=== PATIENT | female | born 1935 | race Caucasian/White ===

== ENCOUNTER 2021-07-25 09:35 | Day surgery (SDC) | payer MEDICARE ==
[2021-07-18 12:08] LABS: BASOPHILS # (AUTO) 0.1 X10'3 (0-0.2); BASOPHILS % (AUTO) 0.9 % (0-1); EOSINOPHILS # (AUTO) 0.1 X10'3 (0-0.9); EOSINOPHILS % (AUTO) 2.5 % (0-6); LYMPHOCYTES # (AUTO) 1.5 X10'3 (1.1-4.8); MEAN CORPUSCULAR HEMOGLOBIN 30.1 PG (27.0-31.0); MEAN CORPUSCULAR HGB CONC 32.8 g/dL (33.0-36.5); MEAN CORPUSCULAR VOLUME 91.6 FL (78-98); MEAN PLATELET VOLUME 8.1 FL (7.4-10.4); MONOCYTES # (AUTO) 0.6 X10'3 (0-0.9); MONOCYTES % (AUTO) 9.4 % (2-12); NEUTROPHILS # (AUTO) 3.7 X10'3 (1.8-7.7); NEUTROPHILS % (AUTO) 62.2 % (42-75); PRE OP HEMATOCRIT 40.9 % (35.0-45.0); PRE OP HEMOGLOBIN 13.4 g/dL (12.0-16.0); PRE OP PLATELET COUNT 271 X10'3 (140-440); RED BLOOD COUNT 4.46 X10'6 (4.20-5.60); RED CELL DISTRIBUTION WIDTH 13.9 % (11.5-14.5)
[2021-07-18 12:48] LABS: ALBUMIN 3.5 G/DL (3.4-5.0); ALBUMIN/GLOBULIN RATIO 1.2 (1.1-1.5); ALKALINE PHOSPHATASE 67 IU/L (46-116); BLOOD UREA NITROGEN 12 MG/DL (7-18); BUN/CREATININE RATIO 21.8 (6.6-38.0); CALCIUM 8.7 MG/DL (8.5-10.1); CHLORIDE 108 MMOL/L (99-107); CREATININE 0.55 MG/DL (0.40-0.90); PRE OP ALT 12 U/L (30-65); PRE OP ANION GAP 9 (8-16); PRE OP AST 21 U/L (10-37); PRE OP BILIRUB, TOTAL 0.4 MG/DL (0.0-1.0); PRE OP GLUCOSE 65 MG/DL (70-104); PRE OP POTASSIUM 4.1 MMOL/L (3.4-5.1); PRE OP SODIUM 147 MMOL/L (135-145); TOTAL CARBON DIOXIDE 30.2 MMOL/L (24-32); TOTAL PROTEIN 6.5 G/DL (6.4-8.2); eGFR > 90 ML/MIN
[~2021-07-25] VITALS: Ht 162.6 cm; Wt 75.0 kg
[2021-07-25] VITALS (7 sets, daily range): BP systolic 147–168; BP diastolic 78–99
[~2021-07-25 09:35] MED LIST: ACET-1025 PO; BONE HEALTH PO; CITA20TA28 PO; DOCU-148 PO; FAMO20TA8 PO; FLO0.4C PO; HYDR-3965 PO; LIDOcaine 0.5% (5mg/ml) 50ml vial ONE; MAG PO; SIMV-42 PO; [UNRECOGNIZED DRUG - OTHER] PO; cefazolin/dext.iso 2gm/50ml IV ONE; famotidine 20mg tablet PO ONE; ringers solution, lacted 1,000 ML IV SCH
[2021-07-25] MEDS ORDERED: BUPIVAcaine 0.5% inj/PF 30 ML ONE (10:53)
[2021-07-25 11:07] LABS: ISTAT ANION GAP 10 (8-12); ISTAT BUN 11 mg/dL (7-18); ISTAT CL 104 mmol/L (99-107); ISTAT CREATININE 0.6 mg/dL (0.6-1.1); ISTAT GLUCOSE 75 mg/dL (70-105); ISTAT HGB 13.9 g/dl (12.0-16.0); ISTAT Hct 41 %PCV (35-48); ISTAT IONIZED CALCIUM 1.24 mmol/L (1.03-1.32); ISTAT K 4.1 mmol/L (3.5-5.1); ISTAT NA 141 mmol/L (135-145); ISTAT TOTAL CO2 27 mmol/L (24-32); ISTAT eGFR > 90 ML/MIN; POC BUN/CREATININE RATIO 18.3 (6.6-38.0)
[2021-07-25] MEDS ORDERED: fentaNYL /PF 50mcg/ml 5ml ampule ONE (11:09)
[2021-07-25] MEDS ORDERED: midazolam 1 mg/ML 2ml injection ONE (11:09)
[2021-07-25] MEDS ORDERED: ondansetron/PF 4mg/2ml inj IV PRN (11:10)
[2021-07-25] MEDS ORDERED: fentaNYL/PF 50MCG/1 ML 2ML syringe IV PRN ×2 (11:10)
[2021-07-25] MEDS ORDERED: ringers solution, lacted 1,000 ML IV SCH (11:10)
[2021-07-25] MEDS ORDERED: hydrALAZINE 20mg/ml inj. IV PRN (11:10)
[2021-07-25] MEDS ORDERED: labetalol 20mg/4ml (5mg/ml) syringe IV PRN (11:10)
[2021-07-25] MEDS ORDERED: morphine 4 MG/ML inj SYRINge IV PRN (11:10)
[2021-07-25] MEDS ORDERED: morphine 2 MG/ML inj. syringe IV PRN (11:10)
[2021-07-25] MEDS ORDERED: BUPIVAcaine 0.5% inj/PF 30 ml vial IJ ONE (11:15)
--- NOTE | 2021-07-25 11:31 | NUR ---
Received from OR via [facility] IN STABLE CONDITION , accompanied by Anesthesiologist and EMS HELICOPTER PILOT report given by EMS HELICOPTER PILOT AND Anesthesiolgist. Addendum: 07/25/21 at 1150 by Ayala Del Cid RN Amended: Links added.
--- NOTE | 2021-07-25 12:31 | NUR ---
PATIENT DISCHARGED FROM PACU IN STABLE CONDITION AFTER WRITTEN AND VERBAL DISCHARGE INSTRUCTIONS GIVEN. PATIENT GAVE VERBAL UNDERSTANDING OF INSTRUCTIONS GIVEN. PATIENT LEFT FACILITY VIA WHEELCHAIR WITH RN. Addendum: 07/25/21 at 1329 by Ayala Del Cid RN Amended: Links added.
== END 2021-07-25 12:31 | disposition home or self-care (01) ==
LOC: PAS 09:35
PROVIDERS: ATTEND Orthopaedic Surgery Hand Surgery
DX: G56.01 Carpal tunnel syndrome, right upper limb (principal); F41.9 Anxiety disorder, unspecified; F32.A Depression, unspecified; M19.90 Unspecified osteoarthritis, unspecified site; K21.9 Gastro-esophageal reflux disease without esophagitis; Z20.822 Contact with and (suspected) exposure to COVID-19; Z91.040 Latex allergy status; Z87.442 Personal history of urinary calculi; Z91.09 Other allergy status, other than to drugs and biological substances; Z79.899 Other long term (current) drug therapy; Z98.890 Other specified postprocedural states; Z90.49 Acquired absence of other specified parts of digestive tract; Z85.828 Personal history of other malignant neoplasm of skin
CPT/HCPCS: 36415; 64721; 80047; 80053; 85025; J2250; J3010; J3490; J7030; J7120; S0020; U0003; U0005; Z7506; Z7512; A4215; J0690